=== PATIENT | male | born 1995 | race Native Hawaiian/Other Pacific Islander ===

== ENCOUNTER 2016-11-26 15:40 | Emergency (ER) | payer SELFPAY ==
--- NOTE | 2016-11-26 16:01 | ED Physician Documentation ---
Nausea/Vomiting/Diarrhea - HISTORIAN Historian: patient, parent - HPI Stated Complaint: N/V/D x 1 week Chief Complaint: Nausea,Vomiting,Diarrhea Additional Information: started 1 week ago, [place] with urination, dark urine, denies abdominal pain, vomits after any food, no blood Onset: days ago Duration: constant Timing: still present Context: denies: out of country travel, bad food, recent trauma Severity: mild Further Comments: no - Associated Symptoms Vomiting: frequent. denies: bloody, blood-streaked Diarrhea: mild, watery. denies: bloody, blood-streaked Abdominal Pain: none - ROS CONST: none CVS/RESP: denies: chest pain GI/: dark urine EYES/ENT: none MS/SKIN/LYMPH: denies: joint pain NEURO/PSYCH: none - PAST HX Past History: none Surgeries/Procedures: none Allergies/Adverse Reactions: Allergies Allergy/AdvReac Type Severity Reaction Status Date / Time No Known Allergies Allergy Verified 11/26/16 15:56 Home Medications: Ambulatory Orders Medication Instructions Recorded NK [NK] 11/26/16 - SOCIAL HX Smoking History: non-smoker Alcohol Use: none Drug Use: none - FAMILY HX Family History: none - VITAL SIGNS Vital Signs: Vital Signs Temp Pulse Resp BP Pulse Ox 98.6 F 75 16 119/72 97 11/26/16 15:46 11/26/16 15:46 11/26/16 15:46 11/26/16 15:46 11/26/16 15:46 - REVIEWED ASSESSMENTS Nursing Assessment Reviewed: Yes Vitals Reviewed: Yes ED Results Lab/Radiology - Lab Results Lab Results: Lab Results 11/26/16 11/26/16 16:25 16:25 WBC 14.30 K/ul H K/ul (4.00-12.00) RBC 5.68 M/ul H M/ul (3.90-5.20) Hgb 17.3 g/dL g/dL (12.0-18.0) Hct 49.9 % % (37.0-53.0) MCV 87.9 fl fl (80.0-100.0) MCH 30.5 pg pg (28.0-34.0) MCHC 34.7 g/dL g/dL (30.0-36.0) RDW 12.6 % % (11.3-14.3) Plt Count 185 K/mm3 K/mm3 (130-400) Neut % (Auto) 88.9 % H % (39.0-79.0) Lymph % (Auto) 5.2 % L % (16.0-50.0) Hubbard % (Auto) 4.4 % % (0.0-11.0) Eos % (Auto) 0.6 % % (0.0-6.8) Baso % (Auto) 0.2 (0.0-1.5) Neut # 12.7 # k/uL H # k/uL (1.4-7.7) Lymph # 0.7 # k/uL # k/uL (0.6-4.0) Hubbard # 0.6 # k/uL # k/uL (0.0-0.9) Eos # 0.1 # k/uL # k/uL (0.0-0.6) Baso # 0.0 # k/uL # k/uL (0.0-0.5) Reactive Lymphs % 0.8 % % (0.0-5.0) Reactive Lymphs # 0.1 # k/uL # k/uL (0.0-0.8) Sodium 139 mmol/L mmol/L (136-145) Potassium 4.2 mmol/L mmol/L (3.5-5.0) Chloride 104 mmol/L mmol/L (98-110) Carbon Dioxide 31 mmol/L mmol/L (20-32) BUN 13 mg/dL mg/dL (10-26) Creatinine 0.7 mg/dL mg/dL (0.4-1.5) Estimated Creat Clear 159 Est GFR ( Amer) > 60 (60 - ) Est GFR (Non-Af Amer) > 60 (60 - ) Glucose 93 mg/dL mg/dL (70-99) Calcium 10.5 mg/dL mg/dL (8.5-10.5) Total Bilirubin 0.7 mg/dL mg/dL (0.2-1.2) AST 22 U/L U/L (0-41) ALT 29 U/L U/L (0-45) Alkaline Phosphatase 73 U/L U/L (46-116) Total Protein 8.3 g/dL g/dL (6.0-8.5) Albumin 5.3 g/dL g/dL (3.0-5.5) Amylase 55 U/L U/L (20-104) - Radiology Radiology Impressions: mild ileus - Orders Orders: ED Orders Category Date Time Status Place Saline Lock/IV Now Care 11/26/16 16:18 Active ABD SERIES PA CHEST [RAD] Stat Exams 11/26/16 15:57 Taken AMYLASE Routine Lab 11/26/16 16:25 Completed CBC/PLATELET/DIFF Routine Lab 11/26/16 16:25 Completed CMP Routine Lab 11/26/16 16:25 Completed INFLUENZA A&B Stat Lab 11/26/16 16:13 Ordered LIPASE Routine Lab 11/26/16 16:25 Received URINALYSIS Routine Lab 11/26/16 Ordered 0.9 % Sodium Chloride [Normal Saline] 1,000 ml Med 11/26/16 15:58 Discontinued IV NOW Nausea Physical Exam - EXAM General Appearance: no acute distress Neuro/Psych: oriented X3 Discharge Clincal Impression: Ileus Nausea & vomiting Qualifiers: Vomiting type: unspecified Vomiting Intractability: unspecified Qualified Code( s): R11.2 - Nausea with vomiting, unspecified Diarrhea Qualifiers: Diarrhea type: unspecified type Qualified Code(s): R19.7 - Diarrhea, unspecified Home Medications: Ambulatory Orders NK [NK] 11/26/16 Condition: Good Disposition: 01 HOME, SELF-CARE Decision to Admit: NO Date of Decison to Admit: 11/26/16 Decision Time: 17:05
[2016-11-26] MEDS: 0.9 % SODIUM CHLORIDE 1,000 ML IV ONE (16:13)
[2016-11-26 16:32] LABS: BASOPHILS % 0.2 (0.0-1.5); EOSINOPHILS % 0.6 % (0.0-6.8); LYMPHOCYTES # 0.7 # k/uL (0.6-4.0); MEAN CORPUSCULAR HEMOGLOBIN 30.5 pg (28.0-34.0); MONOCYTES # 0.6 # k/uL (0.0-0.9); MONOCYTES % 4.4 % (0.0-11.0); NEUTROPHILS # 12.7 # k/uL (1.4-7.7)
[2016-11-26 16:46] LABS: eGFR (African) > 60; eGFR (Non-African) > 60
[2016-11-26 17:34] VITALS: BP 123/60
--- NOTE | 2016-11-26 20:46 | Diagnostic Imaging Report ---
AHSAN ZHANG [facility] [address] [address] [address] [place], [place]. [address] Report Submission Date: Nov 26, 2016 4:42:57 PM [employer] Patient Study Name: NÉSTOR POLLOCK Date: Nov 26, 2016 4:20:29 PM [employer] Modality Type: CR Gender: M Description: CHEST,ABDOMEN : 89 Institution: [facility] Physician: AHSAN ZHANG Chest and obstructive series, total 4 views Clinical history: Nausea, vomiting and diarrhea for 1 week Normal heart shadow and mediastinum, clear lungs without acute infiltrates or pleural effusion. No free air. Bowel gas pattern of the abdomen demonstrate mild ileus in the left upper quadrant abdomen with slight constipation. Impression: No active pulmonary pathology Mild ileus without bowel obstruction or free air Electronically signed on Nov 26, 2016 4:42:57 PM [employer] by: Josue CARDOZA
[2016-11-26 21:31] LABS: LIPASE 32 U/L (13-60)
[2016-11-27 05:36] LABS: APPEARANCE,URINE CLEAR (CLEAR); COLOR,URINE YELLOW (YELLOW); OCCULT BLOOD,URINE NEGATIVE (NEGATIVE); PH URINE 5.5 (5.0 - 8.0)
[2016-11-27 05:37] LABS: UROBILINOGEN URINE 0.2 Eu (0.2-1.0)
== END 2016-11-26 17:32 | disposition home or self-care (01) ==
LOC: ED 15:40
DX: K56.7 Ileus, unspecified (principal)
CPT/HCPCS: 74022; 80053; 81002; 82150; 83690; 85025; 87400; J7030; 96360; 96361; 99283; S1016